=== PATIENT | female | born 1960 | race Caucasian/White ===

== ENCOUNTER → 2018-07-13 16:33 | Outpatient (CLI) | payer OTHER, SELFPAY ==
[2018-07-13 18:30] LABS: Cholesterol 208 mg/dL (140-199); Glucose 86 mg/dL (70-100); HDL Cholesterol 38 mg/dL (40-60); LDL Cholesterol Calculated 130 mg/dL (<100); Triglycerides 202 mg/dL (35-150)
== END ==
PROVIDERS: PCP Student in an Organized Health Care Education/Training Program; Visit Provider Student in an Organized Health Care Education/Training Program
DX: Z00.00 Encounter for general adult medical examination without abnormal findings (principal)
CPT/HCPCS: 36415; 80061; 82947

== ENCOUNTER → 2019-04-17 15:14 | Outpatient (CLI) | payer OTHER, SELFPAY ==
--- NOTE | 2019-04-17 | DI.RAD.S_ITS ---
PROCEDURE: XR KNEE LT 3V INDICATIONS: Pain in LT knee TECHNIQUE: 3 views of the knee were acquired. COMPARISON: None. FINDINGS: Bones: No fractures or dislocations. No suspicious bony lesions. Soft tissues: No joint effusion. No suspicious soft tissue calcifications. IMPRESSION: Normal for age, source of current knee pain symptoms is not seen. Dictated by: Jermaine David M.D. on 04/17/2019 at 16:06 Approved by: Jermaine David M.D. on 04/17/2019 at 16:06
== END ==
PROVIDERS: PCP Student in an Organized Health Care Education/Training Program; Visit Provider Student in an Organized Health Care Education/Training Program
DX: M25.562 Pain in left knee (principal)
CPT/HCPCS: 73562

== ENCOUNTER → 2019-04-20 11:59 | Outpatient (CLI) | payer OTHER, SELFPAY ==
--- NOTE | 2019-04-20 12:01 | DI.US.S_ITS ---
PROCEDURE: US EXTREMITY NONVASC LOWER LT INDICATIONS: KNEE PAIN, EVALUATE FOR BAKERS CYST TECHNIQUE: Real-time scanning was performed of the left knee, with image documentation. COMPARISON: None. FINDINGS: No Rivera's cyst identified. Small suprapatellar knee joint effusion. IMPRESSION: Small suprapatellar knee joint effusion. Dictated by: Zeb DIALLO Interpreted: Jermaine David MD on 04/20/2019 at 13:21 Approved by: Jermaine David M.D. on 04/20/2019 at 14:41
== END ==
PROVIDERS: PCP Student in an Organized Health Care Education/Training Program; Visit Provider Student in an Organized Health Care Education/Training Program
DX: M25.562 Pain in left knee (principal); M25.462 Effusion, left knee
CPT/HCPCS: 76882

== ENCOUNTER → 2019-05-07 18:19 | Outpatient (CLI) | payer OTHER, SELFPAY ==
--- NOTE | 2019-05-07 18:20 | DI.MRI.S_ITS ---
PROCEDURE: MR KNEE LT WO CON INDICATIONS: Left knee pain TECHNIQUE: Noncontrast sagittal PD fast spin echo and T2 fast spin echo with fat saturation, sagittal 3-D FLASH with fat saturation; coronal T1 spin echo and PD fast spin echo with fat saturation, and axial PD fast spin echo with fat saturation through the knee. COMPARISON: None. FINDINGS: Image quality: Excellent. Menisci: The medial meniscus demonstrates normal morphology and internal signal. Complex oblique tear involving anterior horn of lateral meniscus is seen extending to superior articulating surface. Adjacent 1.3 x 1.2 x 1.1 cm cisco- meniscal cyst is seen anterior to anterior horn of lateral meniscus. The meniscal root ligaments appear intact. Cruciate ligaments: The anterior and posterior cruciate ligaments appear intact. Medial structures: The medial collateral ligament appears intact. The posterior oblique ligament, semimembranosus tendon insertions, oblique popliteal ligament, and meniscocapsular junction appear intact. Visualized portions of the pes anserinus tendons appear normal. No abnormal bursal fluid. Lateral structures: The lateral collateral ligament, long and short heads of the biceps femoris tendon appear intact. The popliteus tendon appears normal; the popliteofibular ligament appears intact. The posterosuperior and anteroinferior popliteomeniscal fascicles appear intact. The arcuate and fabellofibular ligaments appear intact, on either side of the lateral inferior geniculate artery. Iliotibial band appears normal. Anterior structures: The quadriceps and patellar tendons appear intact. Patellar alignment is normal. No femoral trochlear dysplasia or ventral trochlear prominence. No edema in the infrapatellar fat pad. Bones and cartilage: No bone marrow contusions or fractures. 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 Low-grade chondromalacia involving lateral facet of patella cartilage and apex is also seen. Joint space: There is small amount of joint fluid. No Rivera's cyst. Normal appearing synovial plicae are incidentally noted. IMPRESSION: 1. Complex tear involving anterior horn of lateral meniscus extending to superior articulating surface with adjacent 1.3 x 1.2 x 1.1 cm cisco- meniscal cyst. No focal medial meniscal tear. 2. Cruciate ligaments are intact. 3. Chondromalacia involving lateral femoral tibial compartment with tiny 3 mm osteochondral lesion in lateral tibial plateau as above. Low-grade chondromalacia patella as above. Small joint effusion. Dictated by: Marty Salcedo M.D. on 05/08/2019 at 9:53 Approved by: Marty Salcedo M.D. on 05/08/2019 at 9:59
== END ==
PROVIDERS: PCP Student in an Organized Health Care Education/Training Program; Visit Provider Student in an Organized Health Care Education/Training Program
DX: S83.282A Other tear of lateral meniscus, current injury, left knee, initial encounter (principal); M94.262 Chondromalacia, left knee
CPT/HCPCS: 73721

== ENCOUNTER → 2019-07-18 15:04 | Outpatient (CLI) | payer OTHER, SELFPAY ==
[2019-07-18 16:18] LABS: Cholesterol 218 mg/dL (140-199); Glucose 95 mg/dL (80-110); HDL Cholesterol 38 mg/dL (40-60); LDL Cholesterol Calculated 145 mg/dL (<100); Triglycerides 173 mg/dL (35-150); Uric Acid 5.3 mg/dL (2.5-6.2)
== END ==
PROVIDERS: PCP Student in an Organized Health Care Education/Training Program; Visit Provider Student in an Organized Health Care Education/Training Program
DX: Z02.89 Encounter for other administrative examinations (principal); M10.9 Gout, unspecified; E66.9 Obesity, unspecified
CPT/HCPCS: 36415; 80061; 82947; 84550

== ENCOUNTER → 2019-10-16 18:38 | Outpatient (CLI) | payer OTHER, SELFPAY ==
--- NOTE | 2019-10-16 | DI.MG.S_ITS ---
BILATERAL DIGITAL SCREENING MAMMOGRAM 3D/2D WITH CAD: 10/16/2019 CLINICAL: Routine screening. Comparison is made to exams dated: 12/28/2017 mammogram, 04/09/2013 mammogram, and 03/03/2012 mammogram - [facility]. There are scattered fibroglandular elements in both breasts. Current study was also evaluated with a Computer Aided Detection (CAD) system. No significant masses, calcifications, or other findings are seen in either breast. There has been no significant interval change. IMPRESSION: NEGATIVE There is no mammographic evidence of malignancy. A 1 year screening mammogram is recommended. This exam was interpreted at Station ID: [id number]. NOTE: For mammograms, a report in lay terms will be sent to the patient. Approximately 15% of breast malignancies will not be visualized mammographically. In the management of a palpable breast mass, a negative mammogram must not discourage biopsy of a clinically suspicious lesion. Electronically Signed By: Rod becker/hernando:10/17/2019 08:36:24 letter sent: Normal Exam ACR BI-RADS Category 1: Negative 3341F
== END ==
PROVIDERS: PCP Student in an Organized Health Care Education/Training Program; Referring Provider Student in an Organized Health Care Education/Training Program; Visit Provider Student in an Organized Health Care Education/Training Program
DX: Z12.31 Encounter for screening mammogram for malignant neoplasm of breast (principal)
CPT/HCPCS: 77063; 77067

== ENCOUNTER → 2020-07-22 16:33 | Outpatient (CLI) | payer OTHER, SELFPAY ==
[2020-07-22 17:58] LABS: Alanine Aminotransferase 18 IU/L (<35); Albumin 4.2 g/dL (3.5-5.0); Albumin Globulin Ratio 1.3 (1.0-2.8); Alkaline Phosphatase 70 U/L (38-126); Aspartate Aminotransferase 22 IU/L (14-36); Bilirubin Total 0.6 mg/dL (0.2-1.3); Bilirubin Unconjugated 0.4 mg/dL (0.0-1.1); Cholesterol 210 mg/dL (140-199); Globulin 3.3 g/dL (1.7-4.1); Glucose 95 mg/dL (80-110); HDL Cholesterol 37 mg/dL (40-60); HEMOLYSIS < 15 (0-50); LDL Cholesterol Calculated 140 mg/dL (<100); Total Protein 7.5 g/dL (6.3-8.2); Triglycerides 167 mg/dL (35-150)
== END ==
PROVIDERS: PCP Student in an Organized Health Care Education/Training Program; Referring Provider Student in an Organized Health Care Education/Training Program; Visit Provider Student in an Organized Health Care Education/Training Program
DX: Z13.220 Encounter for screening for lipoid disorders (principal); R94.5 Abnormal results of liver function studies; E66.9 Obesity, unspecified
CPT/HCPCS: 36415; 80061; 80076; 82947

== ENCOUNTER → 2020-11-28 15:29 | Outpatient (CLI) | payer OTHER, SELFPAY ==
[2020-11-28] MEDS: COVID-19 VACC #1, MRNA(MOD) 100 MCG/0.5 ML VIAL IM (15:36)
== END ==
PROVIDERS: PCP Student in an Organized Health Care Education/Training Program; Visit Provider Internal Medicine
DX: Z23 Encounter for immunization (principal)
CPT/HCPCS: 0011A; 91301

== ENCOUNTER → 2020-12-24 16:53 | Outpatient (CLI) | payer OTHER, SELFPAY ==
--- NOTE | 2020-12-24 16:55 | DI.MG.S_ITS ---
BILATERAL DIGITAL SCREENING MAMMOGRAM 3D/2D WITH CAD: 12/24/2020 CLINICAL: Routine screening. Comparison is made to exams dated: 10/16/2019 mammogram, 12/28/2017 mammogram, 04/09/2013 mammogram, and 03/03/2012 mammogram - [facility]. There are scattered fibroglandular elements in both breasts. Current study was also evaluated with a Computer Aided Detection (CAD) system. No significant masses, calcifications, or other findings are seen in either breast. There has been no significant interval change. IMPRESSION: NEGATIVE There is no mammographic evidence of malignancy. A 1 year screening mammogram is recommended. This exam was interpreted at Station ID: [id number]. NOTE: For mammograms, a report in lay terms will be sent to the patient. Approximately 15% of breast malignancies will not be visualized mammographically. In the management of a palpable breast mass, a negative mammogram must not discourage biopsy of a clinically suspicious lesion. Electronically Signed By: Armen rodriguez/hernando:12/25/2020 07:58:47 letter sent: Normal Exam ACR BI-RADS Category 1: Negative [id number]
== END ==
PROVIDERS: PCP Student in an Organized Health Care Education/Training Program; Referring Provider Student in an Organized Health Care Education/Training Program; Visit Provider Student in an Organized Health Care Education/Training Program
DX: Z12.31 Encounter for screening mammogram for malignant neoplasm of breast (principal)
CPT/HCPCS: 77063; 77067

== ENCOUNTER → 2020-12-26 14:57 | Outpatient (CLI) | payer OTHER, SELFPAY ==
[2020-12-26] MEDS: COVID-19 VACC #2, MRNA(MOD) 100 MCG/0.5 ML VIAL IM (15:05)
== END ==
PROVIDERS: PCP Student in an Organized Health Care Education/Training Program; Visit Provider Internal Medicine
DX: Z23 Encounter for immunization (principal)
CPT/HCPCS: 0012A; 91301

== ENCOUNTER → 2020-12-31 15:25 | Outpatient (CLI) | payer OTHER, SELFPAY ==
--- NOTE | 2020-12-31 15:26 | DI.RAD.S_ITS ---
PROCEDURE: XR LUMBAR SPINE 2-3V INDICATIONS: Low back pain following injury. Associated leg sx. TECHNIQUE: 3 views of the lumbar spine were acquired. COMPARISON: None. FINDINGS: Bones: 5 [id number] vertebrae are present. There is normal bony alignment. No vertebral body compression fractures. No suspicious bony lesions. There is mild degenerative disc height reduction and endplate osteophyte formation along the thoracolumbar spine visualized, and facet osteoarthritis is mild at L3-4 and L4-5 and [id number] at L5-S1. Soft tissues: Overlying bowel gas pattern is normal. No suspicious soft tissue calcifications. IMPRESSION: Mild degenerative changes along the LS spine except [id number] at L5-S1 as discussed above. No fracture or subluxation is seen. If nerve root impingement is present it would be most likely centered on L5-S1. Dictated by: Jermaine David M.D. on 12/31/2020 at 16:02 Approved by: Jermaine David M.D. on 12/31/2020 at 16:03
== END ==
PROVIDERS: PCP Student in an Organized Health Care Education/Training Program; Referring Provider Student in an Organized Health Care Education/Training Program; Visit Provider Student in an Organized Health Care Education/Training Program
DX: M54.5 Low back pain (principal); S39.92XA Unspecified injury of lower back, initial encounter; M47.816 Spondylosis without myelopathy or radiculopathy, lumbar region; M47.817 Spondylosis without myelopathy or radiculopathy, lumbosacral region; X58.XXXA Exposure to other specified factors, initial encounter
CPT/HCPCS: 72100

== ENCOUNTER → 2021-01-08 18:50 | Outpatient (CLI) | payer OTHER, SELFPAY ==
--- NOTE | 2021-01-08 18:54 | DI.MRI.S_ITS ---
PROCEDURE: MR LUMBAR SPINE WO CON INDICATIONS: Lumbar spine injury, new urinary incontinence TECHNIQUE: Noncontrast sagittal T1 spin echo and T2 fast echo, sagittal STIR, axial T1 and T2 fast spin echo through the lumbar spine. In cases with scoliosis, additional coronal T2 fast spin echo may be performed. COMPARISON: [facility], MR, MR LUMBAR SPINE WITHOUT CONTRAST, 07/11/2019, 11:16. FINDINGS: Image quality: Excellent. Alignment and Curvature: There is normal bony alignment. Bone Marrow: Minimal subacute left-sided superior endplate compression of L5. Marrow is of otherwise normal overall signal. No other compression fractures noted. Spinal Cord: Conus medullaris terminates at the L1 level. Visualized cord demonstrates normal signal and size. Paraspinous Soft Tissues: No paravertebral masses. T12-L1: Minimal disc bulge. No canal stenosis or foraminal stenosis. L1-L2: Mild disc bulge. No canal stenosis or foraminal stenosis. L2-L3: Mild disc bulge. Mild facet hypertrophy. Mild canal stenosis. Mild bilateral foraminal stenosis. L3-L4: Unchanged findings. Posterior disc bulge and facet and ligament hypertrophy. Unchanged moderate canal stenosis. Unchanged right foraminal annulus tear plus disc bulge with severe right foraminal narrowing and impingement on the exiting right L3 nerve root. Mild to moderate left foraminal narrowing. L4-L5: Diffuse disc bulge with superimposed left paracentral disc extrusion. There is underlying mild to moderate canal stenosis. The extruded disc material extends from the level of the inferior endplate of L4 to the mid body of L5. It does not exert mass effect on the exiting left L4 nerve root. It obliterates the left L5 nerve root in the left lateral recess. It measures 2.3 x 1.1 x 0.8 cm. A left foraminal annulus tear has developed. There is mild to moderate left foraminal narrowing with flattening deformity on the exiting left L4 nerve root. L5-S1: Posterior annulus tear. Mild disc bulge. Facet and ligament hypertrophy. No canal stenosis or foraminal stenosis. IMPRESSION: 1. At L4-L5, there is now a left paracentral disc extrusion measuring 2.3 x 1.1 x 0.8 cm, which obliterates the left L5 nerve root in the left lateral recess. There is also left foraminal annulus tear in disc bulge, with flattening deformity on the exiting left L4 nerve root. 2. There is mild canal stenosis at L2-L3 and moderate canal stenosis at L3-L4. 3. There is severe right foraminal narrowing at L3-L4. 4. Minimal subacute left aspect superior endplate compression of L5. Dictated by: Sagar Arellano M.D. on 01/09/2021 at 7:50 Approved by: Sagar Arellano M.D. on 01/09/2021 at 8:03
== END ==
PROVIDERS: PCP Student in an Organized Health Care Education/Training Program; Referring Provider Student in an Organized Health Care Education/Training Program; Visit Provider Student in an Organized Health Care Education/Training Program
DX: M48.061 Spinal stenosis, lumbar region without neurogenic claudication (principal); G89.29 Other chronic pain; S39.92XA Unspecified injury of lower back, initial encounter
CPT/HCPCS: 72148

== ENCOUNTER → 2021-01-27 16:56 | Outpatient (CLI) | payer OTHER, SELFPAY ==
[2021-01-27 17:50] LABS: Add Manual Diff / Slide Review NO; Basophils Absolute Auto 100 /uL (0-100); Basophils Percent Auto 0.8 % (0-2); Eosinophils Absolute Auto 300 /uL (0-450); Eosinophils Percent Auto 2.5 % (2-4); Hematocrit 41.1 % (36-46); Hemoglobin 13.9 g/dL (12.0-16.0); Lymphocytes Absolute Auto 3800 /uL (1100-4500); Lymphocytes Percent Auto 36.8 % (25-40); Mean Corpuscular HGB Conc 33.8 % (30-36); Mean Corpuscular Volume 88.8 fL (80-100); Monocytes Absolute Auto 800 /uL (0-900); Monocytes Percent Auto 7.9 % (3-14); Neutrophils Absolute Auto 5400 /uL (1500-7000); Platelet Count 331 X10^3/uL (150-400); Red Blood Cell Count 4.62 X10^6/uL (4.0-5.2); Red Cell Distribution Width 14.1 % (11.6-14.8); White Blood Cell Count 10.4 X10^3/uL (4.5-11.0)
== END ==
PROVIDERS: PCP Student in an Organized Health Care Education/Training Program; Referring Provider Orthopaedic Surgery Orthopaedic Surgery of the Spine; Visit Provider Orthopaedic Surgery Orthopaedic Surgery of the Spine
DX: Z01.818 Encounter for other preprocedural examination (principal)
CPT/HCPCS: 36415; 85025; 93005; 93010

== ENCOUNTER → 2021-01-28 14:00 | Outpatient (CLI) | payer OTHER, SELFPAY ==
[2021-01-28 14:46] LABS: COVID19 -Nasal RAPID Negative (Negative)
== END ==
PROVIDERS: PCP Student in an Organized Health Care Education/Training Program; Visit Provider Physician Assistant
DX: Z20.822 Contact with and (suspected) exposure to COVID-19 (principal)
CPT/HCPCS: 87635

== ENCOUNTER 2021-01-30 11:08 | Day surgery (SDC) | payer OTHER, SELFPAY ==
[2021-01-28 14:48] VITALS: BMI 36.6
[2021-01-30] VITALS (12 sets, daily range): BP systolic 114–154; BP diastolic 49–79; PULSE 78–92; RESP 6–18; TEMP 36.2–38.1; O2SAT 87–99; BMI 36.6
[2021-01-30] MEDS: LACTATED RINGERS 1,000 ML 42 ML IV ×2 (12:30→14:19)
--- NOTE | 2021-01-30 13:08 | PM.PREOP ---
Pre-operative Note COVID-19 COVID-19 status: Negative Result date/Date tested (Pos, Neg/Pending): 01/28/21 Interval Note History & Physical reviewed/Exam performed by Physician: Yes Changes to H&P: No
--- NOTE | 2021-01-30 14:02 | SUR.OPER ---
Prone on spine table, head in foam head support, padded chest and pelvic supports, gel pad at knees, lower legs supported by pillows; nipples, genitalia and toes free of pressure, arms secured on foam padded arm boards at <90 degrees abduction. Tape over blanket at thigh secured to table.
[2021-01-30] MEDS: BUPIVACAINE 0.5% W/ EPI (PF) 30 ML VIAL INJ (14:17)
[2021-01-30] MEDS: methylPREDNISolone acet DEPO 40 MG/ML VIAL IM (14:18)
--- NOTE | 2021-01-30 14:25 | DI.RAD.S_ITS ---
PROCEDURE: XR LUMBAR SPINE 2-3V INDICATIONS: L4-5 MICRODISCECTOMY TECHNIQUE: 2 views of the lumbar spine were acquired. COMPARISON: [facility], , XR LUMBAR SPINE 2-3V, 12/31/2020, 15:30. FINDINGS: Spot fluoroscopic views demonstrating placement of surgical instruments in the posterior paraspinal soft tissues with the tip seen at the level of L4-L5. Dictated by: Cale Lara M.D. on 01/30/2021 at 16:38 Approved by: Cale Lara M.D. on 01/30/2021 at 16:39
--- NOTE | 2021-01-30 15:25 | P.OP_ITS ---
Operative Date/Time/Diagnoses Date of procedure: 01/30/21 Time of procedure: 14:25 Pre-op diagnosis: 1. L4-5 disc herniation 2. L4-5 radiculopathy Post-op diagnosis: same Procedure & Clinicians Procedure: 1. L4-5 left microdiscectomy 2. Utilization of microsurgical technique and operating microscope Same procedure as scheduled: Yes Indications: Patient has been having acute onset back pain and worsening lumbar radiculopathy. Patient failed multiple conservative management with worsening pain weakness and numbness in her lower extremity. Patient has been having difficulty performing activity of daily living. After discussing risks benefits of treatment options, patient elected proceed with surgery. Surgeon: Washington Zuleta Social Services: Charlie Caceres Click Yes if Unassisted: No Anesthesia Type: General Operative Notes Closure Type: primary Specimen(s): none sent Estimated Blood Loss (mL): 10 Blood products transfused: none Procedure in detail: Patient was seen in the preoperative area. Risks and benefits of the surgery was discussed with the patient. Informed consent was obtained from the patient and placed in the chart. Surgical site was marked. Patient was taken to the operative room. General anesthesia was administered. Prophylactic antibiotic was given to the patient less than 30 min before the incision was made. Patient was placed into a prone position on the [place] table. Patient's back was then prepped and draped in the sterile fashion. Time- out was performed at this time. Using AP and lateral C-arm imaging the interval between L4-5 was identified and marked on patient's back. A 1 inch incision 1 in from midline was made on the left side. The fascia was incised in line with skin incision. Globus MARS retractors was placed inside the incision and docked onto the L4 lamina. Using microsurgical technique and operating microscope, a L4 laminotomy was performed using a Kerrison rongeur. Liagamentum flavum was resected at the site of the laminotomy. The disc space at L4-5 was identified. Microdiscectomy was performed by incising the annulus with #11 blade. Microcurettes and pituitary was used to removed herniated disc fragments of disc from the epidural space. Patient was found to have one large disc fragments migrated caudally which was causing significant impingement on the left L5 nerve root. The disc fragment was removed using a pituitary in epidural space. After the microdiskectomy was completed, the area medial lateral superior and inferior to the area of the microdiskectomy was inspected and explored using a micro curette. No other impinging structure was identified. The wound was then irrigated with sterile normal saline. 40 mg Depo-Medrol was placed into the epidural space. The deep fascia was closed with 1-0 Vicryl. The subcutaneous tissue was closed with 2-0 Vicryl. The skin was closed with skin mauro. Patient tolerated the procedure well. There were no complications. Patient was transferred recovery room in stable condition. Complications: none Post-operative Condition: stable Disposition: PACU Plan for aftercare: Discharge to home
[2021-01-30] MEDS: HYDROCODONE/ACET 5/325 TABLET 2 TAB PO ×2 (15:37→16:06)
[2021-01-30] MEDS: HYDROMORPHONE 2 MG INJ IV ×2 (15:43→15:49)
== END 2021-01-30 16:25 | disposition home or self-care (01) ==
PROVIDERS: PCP Student in an Organized Health Care Education/Training Program; Referring Provider Orthopaedic Surgery Orthopaedic Surgery of the Spine; Visit Provider Orthopaedic Surgery Orthopaedic Surgery of the Spine
PROC: (CPT 63030; principal; 2021-01-30 13:15)
DX: M51.16 Intervertebral disc disorders with radiculopathy, lumbar region (principal)
CPT/HCPCS: 63030; 72100; 76000; J1030; J1100; J1170; J2250; J2405; J2704; J3010

== ENCOUNTER → 2021-07-30 16:36 | Outpatient (CLI) | payer OTHER, SELFPAY ==
[2021-07-30 17:36] LABS: Add Manual Diff / Slide Review NO; Basophils Absolute Auto 100 /uL (0-100); Basophils Percent Auto 0.8 % (0-2); Eosinophils Absolute Auto 200 /uL (0-450); Eosinophils Percent Auto 2.1 % (2-4); Hematocrit 39.9 % (36-46); Hemoglobin 13.3 g/dL (12.0-16.0); Lymphocytes Absolute Auto 3500 /uL (1100-4500); Lymphocytes Percent Auto 37.9 % (25-40); Mean Corpuscular HGB Conc 33.4 % (30-36); Mean Corpuscular Hemoglobin 29.6 PG (26-34); Mean Corpuscular Volume 88.6 fL (80-100); Monocytes Absolute Auto 500 /uL (0-900); Monocytes Percent Auto 5.2 % (3-14); Neutrophils Absolute Auto 5000 /uL (1500-7000); Platelet Count 313 X10^3/uL (150-400); Red Blood Cell Count 4.51 X10^6/uL (4.0-5.2); Red Cell Distribution Width 14.5 % (11.6-14.8); White Blood Cell Count 9.2 X10^3/uL (4.5-11.0)
[2021-07-30 17:39] LABS: Appearance Urine UA CLEAR; Bilirubin Urine UA NEGATIVE (NEGATIVE); Color Urine UA YELLOW; Glucose Urine UA NEGATIVE (Negative); Ketones Urine UA NEGATIVE (NEGATIVE); Leukocyte Esterase Urine UA NEGATIVE (NEGATIVE); Nitrite Urine UA NEGATIVE (Negative); Occult Blood Urine UA TRACE-INTACT (Negative); Protein Urine UA TRACE (Negative); Specific Gravity Urine UA >=1.030 (1.000-1.035); Urobilinogen Urine UA 0.2 E.U./dL (0.2)
[2021-07-30 18:00] LABS: Bacteria Urine Occasional (0-1); Culture Indicated Urine Cult Not Indicated; Mucus Urine 3+ (Negative); RBC Urine 0-1/HPF (0-5/HPF); Squamous Epithelial Cell Urine 5-10 /HPF (0-5/HPF); WBC Urine 0-1/HPF (0-5/HPF)
[2021-07-30 18:14] LABS: Alanine Aminotransferase 13 IU/L (<35); Albumin 4.2 g/dL (3.5-5.0); Albumin Globulin Ratio 1.5 (1.0-2.8); Alkaline Phosphatase 70 U/L (38-126); Aspartate Aminotransferase 18 IU/L (14-36); BUN Creatinine Ratio 13.8 (6-22); Bilirubin Total 0.5 mg/dL (0.2-1.3); Blood Urea Nitrogen 11 mg/dL (7-17); C-Reactive Protein Quant 0.5 mg/dL (<1.0); Calcium 9.7 mg/dL (8.4-10.2); Carbon Dioxide 29 mmol/L (22-32); Chloride 105 mmol/L (98-107); Cholesterol 215 mg/dL (140-199); Estimated Glomerular Filt Rate > 60.0 mL/min (>60); Globulin 2.8 g/dL (1.7-4.1); Glucose 91 mg/dL (80-110); HDL Cholesterol 37 mg/dL (40-60); HEMOLYSIS < 15 (0-50); LDL Cholesterol Calculated 143 mg/dL (<100); Lipase 66 U/L (23-300); Potassium 4.3 mmol/L (3.4-5.1); Sodium 140 mmol/L (137-145); Triglycerides 174 mg/dL (35-150)
[2021-07-30 20:28] LABS: Erythrocyte Sedimentation Rate 23 MM/HR (0-20)
== END ==
PROVIDERS: PCP Student in an Organized Health Care Education/Training Program; Referring Provider Student in an Organized Health Care Education/Training Program; Visit Provider Student in an Organized Health Care Education/Training Program
DX: R10.9 Unspecified abdominal pain (principal); Z13.220 Encounter for screening for lipoid disorders
CPT/HCPCS: 36415; 80053; 80061; 81001; 83690; 85025; 85651; 86140

== ENCOUNTER → 2022-08-10 11:56 | Outpatient (CLI) | payer OTHER, SELFPAY ==
[2022-08-10 12:33] LABS: Add Manual Diff / Slide Review NO; Basophils Absolute Auto 100 /uL (0-100); Basophils Percent Auto 0.9 % (0-2); Eosinophils Absolute Auto 300 /uL (0-450); Eosinophils Percent Auto 2.7 % (2-4); Hematocrit 41.8 % (36-46); Hemoglobin 13.9 g/dL (12.0-16.0); Lymphocytes Absolute Auto 4000 /uL (1100-4500); Lymphocytes Percent Auto 35.3 % (25-40); Mean Corpuscular HGB Conc 33.2 % (30-36); Mean Corpuscular Hemoglobin 29.6 PG (26-34); Mean Corpuscular Volume 89.3 fL (80-100); Monocytes Absolute Auto 700 /uL (0-900); Monocytes Percent Auto 6.2 % (3-14); Neutrophils Absolute Auto 6200 /uL (1500-7000); Neutrophils Percent Auto 54.9 % (50-75); Platelet Count 334 X10^3/uL (150-400); Red Blood Cell Count 4.68 X10^6/uL (4.0-5.2); Red Cell Distribution Width 14.5 % (11.6-14.8); White Blood Cell Count 11.2 X10^3/uL (4.5-11.0)
[2022-08-10 13:02] LABS: BUN Creatinine Ratio 17.6 (6-22); Blood Urea Nitrogen 13 mg/dL (7-17); Calcium 9.4 mg/dL (8.4-10.2); Carbon Dioxide 26 mmol/L (22-32); Chloride 104 mmol/L (98-107); Estimated Glomerular Filt Rate > 60 mL/min (>60); Glucose 95 mg/dL (80-110); HEMOLYSIS < 15 (0-50); Potassium 4.3 mmol/L (3.4-5.1); Sodium 141 mmol/L (137-145)
== END ==
PROVIDERS: PCP Student in an Organized Health Care Education/Training Program; Referring Provider Student in an Organized Health Care Education/Training Program; Visit Provider Student in an Organized Health Care Education/Training Program
DX: Z71.1 Person with feared health complaint in whom no diagnosis is made (principal); Z02.89 Encounter for other administrative examinations
CPT/HCPCS: 36415; 80048; 85025

== ENCOUNTER → 2022-08-17 09:51 | Outpatient (CLI) | payer OTHER, SELFPAY ==
[2022-08-17 11:39] LABS: Cholesterol 224 mg/dL (140-199); HDL Cholesterol 41 mg/dL (40-60); LDL Cholesterol Calculated 143 mg/dL (<100); Triglycerides 202 mg/dL (35-150)
== END ==
PROVIDERS: PCP Student in an Organized Health Care Education/Training Program; Referring Provider Student in an Organized Health Care Education/Training Program; Visit Provider Student in an Organized Health Care Education/Training Program
DX: Z02.1 Encounter for pre-employment examination (principal)
CPT/HCPCS: 36415; 80061

== ENCOUNTER 2022-10-17 04:57 | Emergency (ER) | payer OTHER, SELFPAY ==
[2022-10-17] VITALS (9 sets, daily range): BP systolic 126–180; BP diastolic 60–78; PULSE 69–81; RESP 14–16; TEMP 36.4; O2SAT 97–98
--- NOTE | 2022-10-17 05:36 | DI.CT.S_ITS ---
PROCEDURE: CT ABDOMEN PELVIS W CON INDICATIONS: RLQ pain TECHNIQUE: After the administration of intravenous contrast, axial sections acquired from the lung bases to the pubic symphysis. Coronal and sagittal reformats were performed. For radiation dose reduction, the following was used: automated exposure control, adjustment of mA and/or kV according to patient size. COMPARISON: [facility], CT, ABDOMEN/PELVIS WITH CONTRAST, 03/06/2012, 13:25. FINDINGS: Lower thorax: The lung bases are clear. Heart size normal. No hiatal hernia. Liver: Hypodensity in the periphery of the right hepatic lobe with suggestion of peripheral puddling, probably reflecting hemangioma Biliary system: Cholecystectomy. No intra or extrahepatic bile duct dilation. Pancreas: Unremarkable without mass or inflammation evident. Spleen: Normal in size and density. Adrenals: Normal morphology and density. Reproductive system: Unremarkable as visualized. Urinary system: Bladder wall thickening with mild pericystic inflammatory change noted. Both kidneys enhance appropriately. Cystic lesion noted involving the right kidney remains stable from the prior. There is mild right hydronephrosis and urothelial wall enhancement which could reflect urethritis. No evidence of abscess. Left kidney unremarkable. Gastrointestinal system: Prior mid colonic suture noted. No abscess or obstruction. Appendix: Appendectomy Peritoneal spaces: No mesenteric or retroperitoneal adenopathy. No free air. No free fluid. Vasculature: The IVC, aorta and iliac vasculature are unremarkable. Abdominal wall: Abdominal wall intact without evidence of ventral or inguinal hernias. Musculoskeletal: Normal bone mineralization. No acute fractures. IMPRESSION: 1. Probable cystitis and possible associated right renal urethritis. No abscess. 2. Stable right hepatic hypodensity, consistent with hemangioma. Note: Final report is concordant with preliminary interpretation by [employer] Approved by: Vlad Rosario M.D. on 10/17/2022 at 8:22
[2022-10-17 05:37] LABS: Bacteria Urine Many (>30); Culture Indicated Urine Specimen Cultured; Mucus Urine 1+ (Negative); RBC Urine 30-100/HPF (0-5/HPF); Squamous Epithelial Cell Urine 0-1 /HPF (0-5/HPF); Transitional Epi Cells Urine 1-5/HPF (0-5/HPF); WBC Urine >100/HPF (0-5/HPF)
--- NOTE | 2022-10-17 05:38 | ED.GENADULT ---
HPI - General Adult General Chief complaint: Abdominal Pain Stated complaint: rt side abd pain Time Seen by Provider: 10/17/22 05:07 Source: patient Mode of arrival: Ambulatory History of Present Illness HPI narrative: 62-year-old woman no significant chronic medical history or medications presents with 24 hours of increasing right lower quadrant and right flank pain. She notes the last time she had symptoms as severe as this she ended up having diverticulitis with emergent surgery and partial colectomy and colostomy. She comes in complaining of dysuria with urinary frequency almost every 2 hours with smaller volumes of urine as the evening has gone by. No overt hematuria. She does not describe cough feels that she has been hot but has not measured her fever. No headache abdominal pain is localized to the right lower quadrant and right flank. She describes mild nausea, decreased appetite no headaches. Related Data Home Medications Medication Instructions Recorded Confirmed diphenhydramine HCl 25 mg capsule 25 mg PO BEDTIME 01/08/21 08/10/22 (Benadryl) Previous Rx's Medication Instructions Recorded cephalexin 500 mg capsule 500 mg PO TID 10 days #30 caps 10/17/22 Allergies Allergy/AdvReac Type Severity Reaction Status Date / Time aspirin AdvReac Intermediate Stomach Verified 08/10/22 11:30 pain Penicillins AdvReac Mild Unknown Verified 08/10/22 11:30 TAPE AdvReac Mild WHITE Uncoded 08/10/22 11:30 TAPE: RASH Review of Systems Review of Systems Narrative: Remainder of complete review of systems is otherwise unremarkable except for that included in the HPI. 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 Primary insomnia (07/06/16) Rheumatoid arthritis (2008) RLS (restless legs syndrome) (1960) Spinal stenosis, lumbar region with neurogenic claudication Surgical History Anesthesia History of arthroscopic knee surgery (~2008) History of cholecystectomy (03/24/12) History of colonoscopy (05/01/13) History of hemicolectomy (07/06/16) History of hysterectomy (2003) History of knee replacement (2012) History of partial colectomy (2007) History of tonsillectomy (1974) History of tubal ligation (1994) Status post right breast lumpectomy (1977) Status post right knee replacement Family History Son Age: 33 Mental health problem Daughter Age: 32 Obesity, unspecified obesity severity, unspecified obesity type Father Type 2 diabetes mellitus without complication, unspecified continuous churn buttermaker insulin use status Mother Cancer Erysipelas Sister Age: 72 Type 2 diabetes mellitus without complication, unspecified fci insulin use status Brother Multiple myeloma Social History household members: family and none Smoking Status: Never smoker alcohol intake: never substance use type: does not use Smoking Status: Never smoker Substance Use Type: does not use Exam Initial Vital Signs Initial Vital Signs: Vital Signs Temperature 97.5 F L 10/17/22 05:10 Pulse Rate 80 10/17/22 05:10 Respiratory Rate 16 10/17/22 05:10 Blood Pressure 180/78 H 10/17/22 05:10 Pulse Oximetry 97 10/17/22 05:10 Oxygen Delivery Method 10/17/22 05:10 General: Appears fatigued and in a moderate amount of pain but Able to deliver complete coherent history. HEENT: Moist mucous membranes, normal sclera with reactive pupils, Respiratory: Lungs are clear to auscultation, no wheezing no rales no rhonchi. Full and symmetrical air movement Cardiac: Regular rate and rhythm no murmurs no bruits Abdomen: Soft, right lower quadrant and right flank pain without rebound or guarding. No significant suprapubic tenderness. No upper quadrant abnormalities Skin: Warm and dry, no rashes Neurologic: Grossly neurologically intact with no obvious asymmetries or abnormalities Extremities: No trauma, well perfused Psych: Cooperative, appropriate insight and affect Course Orders Ordered: ED Orders 10/17/22 05:20 Urine Culture Stat Urine Microscopic Stat 10/17/22 05:36 CT abdomen pelvis w con Stat 10/17/22 05:45 Complete Blood Count AUTO DIFF Stat Comprehensive Metabolic Panel Stat Lactate (Lactic Acid) Stat 10/17/22 06:27 Blood Culture Stat Hydromorphone HCl (Hydromorphone 0.5 Mg Inj) 0.5 mg IV Q15MIN PRN PRN Reason: Pain, Last Admin: 10/17/22 05:55 Dose: 0.5 mg Documented By: BS Discontinued Medications Sodium Chloride (Normal Saline 0.9%) 1,000 mls @ 1,000 mls/hr IV BOLUS ONE Stop: 10/17/22 06:34 Last Admin: 10/17/22 05:55 Dose: 1,000 mls/hr Documented By: BS Ondansetron HCl (Ondansetron 4 Mg/2 Ml Inj) 4 mg IV NOW ONE Stop: 10/17/22 05:36 Last Admin: 10/17/22 05:54 Dose: 4 mg Documented By: BS Vital Signs Vital signs: Vital Signs - 8 hr 10/17/22 05:10 Temperature 97.5 F L Pulse Rate 80 Respiratory Rate 16 Blood Pressure 180/78 H Pulse Oximetry 97 Oxygen Delivery Method Room Air Medical Decision Making Lab Data 10/17/22 05:45 10/17/22 05:45 Labs: Lab Results 10/17/22 10/17/22 10/17/22 Range/Units 05:20 05:45 05:45 WBC 16.4 H (4.5-11.0) X10^3/uL RBC 4.58 (4.0-5.2) X10^6/uL Hgb 13.5 (12.0-16.0) g/dL Hct 40.1 (36-46) % MCV 87.6 (80-100) fL MCH 29.5 (26-34) PG MCHC 33.7 (30-36) % RDW 14.1 (11.6-14.8) % Plt Count 277 (150-400) X10^3/uL Neut % (Auto) 76.7 H (50-75) % Lymph % (Auto) 14.8 L (25-40) % [place] % (Auto) 7.5 (3-14) % Eos % (Auto) 0.6 L (2-4) % Baso % (Auto) 0.4 (0-2) % Neut # (Auto) 05254 H (8012-3750) /uL Lymph # (Auto) 2400 (9221-7111) /uL [place] # (Auto) 1200 H (0-900) /uL Eos # (Auto) 100 (0-450) /uL Baso # (Auto) 100 (0-100) /uL Sodium 140 (137-145) mmol/L Potassium 3.8 (3.4-5.1) mmol/L Chloride 103 (98-107) mmol/L Carbon Dioxide 28 (22-32) mmol/L BUN 10 (7-17) mg/dL Creatinine 0.72 (0.52-1.04) mg/dL Estimated GFR > 60 (>60) mL/min BUN/Creatinine Ratio 13.9 (6-22) Glucose 119 H (80-110) mg/dL Lactate (0.7-2.1) mmol/L Calcium 9.3 (8.4-10.2) mg/dL Total Bilirubin 0.7 (0.2-1.3) mg/dL AST 17 (14-36) IU/L ALT 17 (<35) IU/L Alkaline Phosphatase 76 (38-126) U/L Total Protein 7.4 (6.3-8.2) g/dL Albumin 4.1 (3.5-5.0) g/dL Globulin 3.3 (1.7-4.1) g/dL Albumin/Globulin Ratio 1.2 (1.0-2.8) Urine RBC 30-100/hpf H (0-5/HPF) Urine WBC >100/hpf H (0-5/HPF) Ur Squamous Epith Cells 0-1 /hpf (0-5/HPF) Ur Transition Epith Cell 1-5/hpf (0-5/HPF) Urine Bacteria Many (>30) H (None) Urine Mucus 1+ H (Negative) Ur Culture Indicated? Specimen cultured 10/17/22 Range/Units 05:45 WBC (4.5-11.0) X10^3/uL RBC (4.0-5.2) X10^6/uL Hgb (12.0-16.0) g/dL Hct (36-46) % MCV (80-100) fL MCH (26-34) PG MCHC (30-36) % RDW (11.6-14.8) % Plt Count (150-400) X10^3/uL Neut % (Auto) (50-75) % Lymph % (Auto) (25-40) % [place] % (Auto) (3-14) % Eos % (Auto) (2-4) % Baso % (Auto) (0-2) % Neut # (Auto) (5026-2784) /uL Lymph # (Auto) (6807-5753) /uL [place] # (Auto) (0-900) /uL Eos # (Auto) (0-450) /uL Baso # (Auto) (0-100) /uL Sodium (137-145) mmol/L Potassium (3.4-5.1) mmol/L Chloride (98-107) mmol/L Carbon Dioxide (22-32) mmol/L BUN (7-17) mg/dL Creatinine (0.52-1.04) mg/dL Estimated GFR (>60) mL/min BUN/Creatinine Ratio (6-22) Glucose (80-110) mg/dL Lactate 1.3 (0.7-2.1) mmol/L Calcium (8.4-10.2) mg/dL Total Bilirubin (0.2-1.3) mg/dL AST (14-36) IU/L ALT (<35) IU/L Alkaline Phosphatase (38-126) U/L Total Protein (6.3-8.2) g/dL Albumin (3.5-5.0) g/dL Globulin (1.7-4.1) g/dL Albumin/Globulin Ratio (1.0-2.8) Urine RBC (0-5/HPF) Urine WBC (0-5/HPF) Ur Squamous Epith Cells (0-5/HPF) Ur Transition Epith Cell (0-5/HPF) Urine Bacteria (None) Urine Mucus (Negative) Ur Culture Indicated? Imaging Data CT scan - abdomen/pelvis: Radiologist's Impression: Flor[place] cystitis with possible pyelonephrosis. No evidence of renal abscess. Renal edema is appreciated on the right. No obstructing calculus is demonstrated. Post appendectomy, post hysterectomy Popeye Chiang. MDM Narrative Medical decision making narrative: CC: 24 hours of right lower quadrant pain with dysuria. This is a new problem uncertain diagnosis, potential for significant systemic symptoms Corroborating data: Data collected from: patient, Differential considered: Pyelonephritis, kidney stone, bladder infection, sepsis, doubt pelvic inflammatory disease in the absence of sexual activity since 2007. Possibility of diverticulitis patient believes that she still has her appendix in so appendicitis remains within the differential. Exam documented above, pertinent findings include: Moderate right lower quadrant and right flank pain. No evidence of acute surgical abdomen Lab Test results independently reviewed as above. Pertinent findings: CBC reveals a leukocytosis at 16.4 with moderate left shift Chemistries are reassuring with normal renal function Lactic is 1.3 Imaging studies independently reviewed: Acute cystitis with developing right pyelonephritis Treatments: Fluids, 2 g of IV ceftriaxone, pain control and nausea medication are all given. Re-evaluations: Patient is feeling better after IV fluids and Zofran. Reviewed laboratory findings with her as well as diagnosis of cystitis with developing pyelonephritis in the absence of nephrolithiasis. She is given 2 g of ceftriaxone and will be discharged home with a prescription for Keflex. She states the penicillins just ?never work?. She also finds that ibuprofen has never been effective for her but Tylenol is. She will be safe for discharge home we will need to complete the course of antibiotics, questions are answered. Disposition: see below, along with detailed discharge instructions that have been reviewed with patient as well as indications for ED re-evaluation and additional outpatient follow up Discharge Plan Departure Patient Disposition: Home Clinical Impression: Cystitis, Pyelonephritis Instructions: DI for Kidney Infection Activity Restrictions/Additional Instructions: Thank you for coming in today Your blood work suggests that you do have an infection but you are not septic. It looks like you have significant bladder infection that is starting to spread to your kidney. In the emergency department you are given fluids, nausea medicine, pain medication and started on antibiotics. You received 2 g of IV ceftriaxone. Your urine will be cultured and I have given you a prescription for Keflex for 10 days. If the culture suggest that we need to change antibiotics we will give you a call. The antibiotics have been electronically transmitted to [facility] in [place]. You can use Tylenol for pain control. I appreciate that ibuprofen does not work for you. You might try Aleve and see if you have any different luck with that. If you find that you are getting worse or develop any new symptoms, please feel free to return to the emergency department for further evaluation. Prescriptions: New cephalexin 500 mg capsule 500 mg PO TID 10 Days Qty: 30 0RF No Action diphenhydramine HCl [Benadryl] 25 mg capsule 25 mg PO BEDTIME Referrals: Vinicius Lane MD [Primary Care Provider] - Stand Alone Forms: Patient Portal/API
[2022-10-17 05:52] LABS: Add Manual Diff / Slide Review NO; Basophils Absolute Auto 100 /uL (0-100); Basophils Percent Auto 0.4 % (0-2); Eosinophils Absolute Auto 100 /uL (0-450); Eosinophils Percent Auto 0.6 % (2-4); Hematocrit 40.1 % (36-46); Hemoglobin 13.5 g/dL (12.0-16.0); Lymphocytes Absolute Auto 2400 /uL (1100-4500); Lymphocytes Percent Auto 14.8 % (25-40); Mean Corpuscular HGB Conc 33.7 % (30-36); Mean Corpuscular Hemoglobin 29.5 PG (26-34); Mean Corpuscular Volume 87.6 fL (80-100); Monocytes Absolute Auto 1200 /uL (0-900); Monocytes Percent Auto 7.5 % (3-14); Neutrophils Absolute Auto 12600 /uL (1500-7000); Neutrophils Percent Auto 76.7 % (50-75); Platelet Count 277 X10^3/uL (150-400); Red Blood Cell Count 4.58 X10^6/uL (4.0-5.2); Red Cell Distribution Width 14.1 % (11.6-14.8); White Blood Cell Count 16.4 X10^3/uL (4.5-11.0)
[2022-10-17] MEDS: ONDANSETRON 4 MG/2 ML INJ IV (05:54)
[2022-10-17] MEDS: SODIUM CHLORIDE 0.9% 1,000 ML 1000 ML IV (05:55)
[2022-10-17] MEDS: HYDROMORPHONE 0.5 MG INJ IV (05:55)
[2022-10-17 06:03] LABS: Lactate (Lactic Acid) 1.3 mmol/L (0.7-2.1)
[2022-10-17 06:04] LABS: Alanine Aminotransferase 17 IU/L (<35); Albumin 4.1 g/dL (3.5-5.0); Albumin Globulin Ratio 1.2 (1.0-2.8); Alkaline Phosphatase 76 U/L (38-126); Aspartate Aminotransferase 17 IU/L (14-36); BUN Creatinine Ratio 13.9 (6-22); Bilirubin Total 0.7 mg/dL (0.2-1.3); Blood Urea Nitrogen 10 mg/dL (7-17); Calcium 9.3 mg/dL (8.4-10.2); Carbon Dioxide 28 mmol/L (22-32); Chloride 103 mmol/L (98-107); Estimated Glomerular Filt Rate > 60 mL/min (>60); Globulin 3.3 g/dL (1.7-4.1); Glucose 119 mg/dL (80-110); HEMOLYSIS < 15 (0-50); Potassium 3.8 mmol/L (3.4-5.1); Sodium 140 mmol/L (137-145); Total Protein 7.4 g/dL (6.3-8.2)
[2022-10-17] MEDS: KETOROLAC 30 MG/ML VIAL 15 MG IV (07:03)
[2022-10-17] MEDS: cefTRIAXone 2,000 MG in SODIUM CHLORIDE 0.9% 100 ML 200 MG IV (07:04)
== END 2022-10-17 07:46 | disposition home or self-care (01) ==
PROVIDERS: Emergency Provider Emergency Medicine; PCP Student in an Organized Health Care Education/Training Program
DX: N30.90 Cystitis, unspecified without hematuria (principal); N12 Tubulo-interstitial nephritis, not specified as acute or chronic
CPT/HCPCS: 36415; 74177; 80053; 81015; 83605; 85025; 87040; 87077; 87086; 87186; 96361; 96365; 96375; 99284; J0696; J1170; J1885; J2405; Q9967

== ENCOUNTER → 2022-12-15 16:43 | Outpatient (CLI) | payer OTHER, SELFPAY ==
--- NOTE | 2022-12-15 16:46 | DI.MG.S_ITS ---
BILATERAL DIGITAL SCREENING MAMMOGRAM 3D/2D WITH CAD: 12/15/2022 CLINICAL: Routine screening. Comparison is made to exams dated: 12/24/2020 mammogram, 10/16/2019 mammogram, and 12/28/2017 mammogram - [facility]. There are scattered areas of fibroglandular density in both breasts (category b / 25%-50% glandular tissue). Current study was also evaluated with a Computer Aided Detection (CAD) system. There are mole markers on both breasts. No significant masses, calcifications, or other findings are seen in either breast. There has been no significant interval change. IMPRESSION: NEGATIVE There is no mammographic evidence of malignancy. A 1 year screening mammogram is recommended. Based on the Tyrer Cuzick model (a risk assessment model) the patient's lifetime risk is 5.8% and her 10 year risk is 2.7%. According to the ACR, ACS, and NCCN guidelines, an annual breast MRI exam along with mammogram is recommended if the patient's lifetime risk is 20% or greater. This exam was interpreted at Station ID: [id number]. NOTE: For mammograms, a report in lay terms will be sent to the patient. Approximately 15% of breast malignancies will not be visualized mammographically. In the management of a palpable breast mass, a negative mammogram must not discourage biopsy of a clinically suspicious lesion. Electronically Signed By: Guzman deng/hernando:12/16/2022 13:31:25 letter sent: Normal Exam ACR BI-RADS Category 1: Negative 3341F
== END ==
PROVIDERS: PCP Student in an Organized Health Care Education/Training Program; Referring Provider Student in an Organized Health Care Education/Training Program; Visit Provider Student in an Organized Health Care Education/Training Program
DX: Z12.31 Encounter for screening mammogram for malignant neoplasm of breast (principal)
CPT/HCPCS: 77063; 77067

== ENCOUNTER → 2022-12-22 08:53 | Outpatient (CLI) | payer OTHER, SELFPAY ==
--- NOTE | 2022-12-22 | DI.RAD.S_ITS ---
PROCEDURE: XR SACRUM COCCYX MIN 2V INDICATIONS: PINCHED NERVE TECHNIQUE: 3 views of the sacrum and coccyx acquired. COMPARISON: None. FINDINGS: Bones: Partially seen bilateral mild hip arthrosis. Lumbosacral mild degenerative changes. No displaced fracture or dislocation. Soft tissues: Surgical clips seen projecting over the right pelvis. IMPRESSION: No acute radiographic abnormality. If there is high concern for further derangement, consider MRI evaluation. Dictated by: Jay Hernandes M.D. on 12/22/2022 at 11:20 Approved by: Jay Hernandes M.D. on 12/22/2022 at 11:20
== END ==
PROVIDERS: PCP Student in an Organized Health Care Education/Training Program; Referring Provider Student in an Organized Health Care Education/Training Program; Visit Provider Student in an Organized Health Care Education/Training Program
DX: G58.9 Mononeuropathy, unspecified (principal); M16.0 Bilateral primary osteoarthritis of hip; M47.817 Spondylosis without myelopathy or radiculopathy, lumbosacral region
CPT/HCPCS: 72220

== ENCOUNTER → 2023-03-31 14:30 | Outpatient (CLI) | payer OTHER, SELFPAY ==
[2023-03-31 16:12] LABS: Add Manual Diff / Slide Review NO; Basophils Absolute Auto 100 /uL (0-100); Basophils Percent Auto 0.8 % (0-2); Eosinophils Absolute Auto 200 /uL (0-450); Eosinophils Percent Auto 1.9 % (2-4); Hematocrit 39.1 % (36-46); Hemoglobin 13.1 g/dL (12.0-16.0); Lymphocytes Absolute Auto 3500 /uL (1100-4500); Lymphocytes Percent Auto 33.8 % (25-40); Mean Corpuscular HGB Conc 33.6 % (30-36); Mean Corpuscular Hemoglobin 29.5 PG (26-34); Mean Corpuscular Volume 87.9 fL (80-100); Monocytes Absolute Auto 700 /uL (0-900); Monocytes Percent Auto 6.9 % (3-14); Neutrophils Absolute Auto 5800 /uL (1500-7000); Neutrophils Percent Auto 56.6 % (50-75); Platelet Count 317 X10^3/uL (150-400); Red Blood Cell Count 4.45 X10^6/uL (4.0-5.2); Red Cell Distribution Width 14.6 % (11.6-14.8); White Blood Cell Count 10.3 X10^3/uL (4.5-11.0)
[2023-03-31 16:16] LABS: Erythrocyte Sedimentation Rate 33 MM/HR (0-20)
[2023-03-31 16:34] LABS: C-Reactive Protein Quant 1.3 mg/dL (<1.0)
[2023-04-02 19:36] LABS: ANA Screen, IFA Negative (.)
== END ==
PROVIDERS: PCP Student in an Organized Health Care Education/Training Program; Referring Provider Pediatrics; Visit Provider Pediatrics
DX: M19.90 Unspecified osteoarthritis, unspecified site (principal); M65.80 Other synovitis and tenosynovitis, unspecified site; R20.8 Other disturbances of skin sensation; T14.8XXA Other injury of unspecified body region, initial encounter
CPT/HCPCS: 36415; 85025; 85651; 86038; 86140

== ENCOUNTER → 2023-05-09 18:49 | Outpatient (ROUT) | payer OTHER, SELFPAY | PROVIDERS: PCP Student in an Organized Health Care Education/Training Program; Visit Provider Dermatology | DX: D48.5 Neoplasm of uncertain behavior of skin (principal) | CPT/HCPCS: 87070; 87075; 87077; 87147; 87186; 87205 ==

== ENCOUNTER 2023-05-20 13:32 | Day surgery (SDC) | payer OTHER, SELFPAY ==
--- NOTE | 2023-05-20 | PATH_ITS ---
[facility] Accession Number: [id number] No. of containers..04 Tissue . 01 Material submitted: . PART A: colon - CECAL POLYP PART B: colon - ASCENDING COLON POLYP PART C: colon - DESCENDING COLON POLYP PART D: rectum - RECTAL POLYP . 01 Diagnosis: A. Cecal Polyp, Biopsy: Tubular adenoma. . B. Ascending Colon Polyp, Biopsy: Tubular adenoma. . C. Descending Colon Polyp, Biopsy: Tubular adenoma. . D. Rectal Polyp, Biopsy: Hyperplastic polyp. [facility] 05/27/2023 1336 Local . 01 Electronically signed: . Brenda Barahona MD, Pathologist NPI- [id number] . 01 Gross description: . Part A: CECAL POLYP: Received in formalin is 1 fragment(s) of pedersen, soft tissue measuring 0.3 x 0.3 x 0.2 cm submitted entirely in 1 cassette(s) Part B: ASCENDING COLON POLYP: Received in formalin is multiple fragment(s) of pedersen, soft tissue measuring 0.5 x 0.3 x 0.1 cm in aggregate submitted entirely in 1 cassette(s) Part C: DESCENDING COLON POLYP: Received in formalin is 2 fragment(s) of pedersen, soft tissue measuring 0.8 x 0.3 x 0.3 cm to 0.4 x 0.3 x 0.1 cm submitted entirely in 1 cassette(s) Part D: RECTAL POLYP: Received in formalin is 2 fragment(s) of pedersen, soft tissue measuring 0.3 x 0.3 x 0.2 cm to 0.3 x 0.2 x 0.1 cm submitted entirely in 1 cassette(s) /AAY 05/24/2023 0026 Local . 01 Pathologist provided ICD-10: D12.0, D12.2, D12.4, D12.8 . 01 CPT . 956358, 159265, [id number], [id number] Specimen Comment: A courtesy copy of this report has been sent to [facility] Pathology Performed at: 01 [facility] [address] [place] [address], [place], [place] [id number] MD Rod Dutton MD Phone: [phone]
[2023-05-20 14:03] VITALS: BMI 36.5
[2023-05-20 14:12] VITALS: BP 149/80; PULSE 77; RESP 18; TEMP 36.6; O2SAT 98
[2023-05-20] MEDS: LACTATED RINGERS 1,000 ML 42 ML IV (14:16)
--- NOTE | 2023-05-20 14:31 | PM.HP.1 ---
History of Present Illness History of Present Illness Date Patient Seen: 05/20/23 Time Patient Seen: 14:31 Chief complaint: Colonoscopy Narrative: 62 yo F presents today for a screening colonoscopy. In around 2007 she presented to [facility] with severe diverticulitis and underwent a emergent colectomy she had a colostomy that was taken down about 3 months later. Her surgeon was Dr. Strange at the time. It has been 10+ years since her last colonoscopy though she has no recollection of history of polyps. 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 Primary insomnia (07/06/16) Rheumatoid arthritis (2008) RLS (restless legs syndrome) (1960) Skin tenderness Spinal stenosis, lumbar region with neurogenic claudication Tendon calcification Surgical History (Updated 11/29/22 @ 09:35 by Jerel Pabon MD) Anesthesia History of arthroscopic knee surgery (~2008) History of back surgery (~01/2021) History of cholecystectomy (03/24/12) History of colonoscopy (05/01/13) History of hemicolectomy (07/06/16) History of hysterectomy (2003) History of knee replacement (2012) History of partial colectomy (2007) History of tonsillectomy (1974) History of tubal ligation (1994) Status post right breast lumpectomy (1977) Status post right knee replacement Family History Son Age: 33 Mental health problem Daughter Age: 32 Obesity, unspecified obesity severity, unspecified obesity type Father Type 2 diabetes mellitus without complication, unspecified terminal block assembler insulin use status Mother Cancer Erysipelas Sister Age: 72 Type 2 diabetes mellitus without complication, unspecified terminal block assembler insulin use status Brother Multiple myeloma Social History household members: children and none Smoking Status: Former smoker alcohol intake: current substance use type: does not use Meds Home Medications and Allergies Home Medications Medication Instructions Recorded Confirmed Type diphenhydramine HCl 25 mg capsule 25 mg PO BEDTIME 01/08/21 05/20/23 History (Benadryl) Allergies Allergy/AdvReac Type Severity Reaction Status Date / Time aspirin AdvReac Intermediate Stomach Verified 05/20/23 14:01 pain Penicillins AdvReac Mild Unknown Verified 05/20/23 14:01 TAPE AdvReac Mild WHITE Uncoded 05/20/23 14:18 TAPE: RASH Exam Vital Signs (past 8 hours): - 05/20/23 14:12 Temperature 98 F Pulse Rate 77 Respiratory Rate 18 Blood Pressure 149/80 H Pulse Oximetry 98 Oxygen Delivery Method Room Air Oxygen Delivery Method Room Air Const General: cooperative, healthy appearing and comfortable Nutritional Appearance: obese (BMI 36) Orientation: alert, awake and oriented x3 HENMT Mouth: oral mucosae normal Eyes General: appearance normal, both eyes and all related structures Resp Effort & Inspection: normal respiratory effort and able to speak in complete sentences GI Palpation: soft and No tender Assessment & Plan Assessment and plan (1) Colon cancer screening: Status: Acute Assessment & Plan narrative: Presents today for screening colonoscopy I discussed the risks benefits and alternatives including but not limited to perforation of the colon and an incomplete exam she fully understands these risks and would like to proceed.
[2023-05-20 16:37] VITALS: BP 120/67; PULSE 70; RESP 16; TEMP 36.6; O2SAT 98
[2023-05-20 16:41] VITALS: BP 132/67; PULSE 69; RESP 13; O2SAT 98
--- NOTE | 2023-05-20 16:41 | PM.OP.COLON ---
Operative Date/Time/Diagnoses Date of procedure: 05/20/23 Time of procedure: 16:41 Pre-op diagnosis: Colon cancer screening, no family history, last colonoscopy 10+ years ago Post-op diagnosis: same Procedure & Clinicians Study performed: Colonoscopy and biopsy Same procedure as scheduled: Yes Indications: Colon cancer screening. Surgeon: Temi Finley Procedure Notes Procedure in detail: Patient was taken to the endoscopy suite and placed in a left lateral decubitus position. A time-out was performed. With the help of anesthesiologist conscious sedation was induced and monitored throughout the case. A digital rectal exam was performed and there were no masses or strictures. The colonoscope was introduced into the anal canal and advanced through to the cecum. A photograph of the appendiceal orifice was obtained. The bowel prep was good [place] bowel prep score of 2. The scope was then withdrawn for a total of 15 minutes including biopsies. There was a small protrusion in the cecum that was photographed and removed with a biopsy forceps and sent for pathology. In the ascending colon I encountered a small polyp removed with biopsy forceps. In the descending colon there were 3 rather large polyps maybe 7 or 8 mm in size which were snared and removed all 3 in a similar proximity and sent together in the same specimen jar. The scope was then retroflexed and a photograph of the internal hemorrhoidal piles was obtained. There was a small rectal polyp that was biopsied at this time too. Interestingly throughout the transverse colon there were large deep diverticula which were photographed. Also further down in the distal colon was a large pouch which I thought may have been a post surgical change. Findings: divertiulosis and polyp(s) Specimen(s): other (1. Cecal polyp 2. Ascending polyp 3. Descending polyp x3 4. Small rectal polyp) Post-procedure Plan for aftercare: Likely going to be a 3-5 year follow-up because of the number of polyps. We will await the final pathology report for the official final recommendation for follow-up. I do recommend fiber supplementation for any patient was diverticula or polyps.
[2023-05-20 16:46] VITALS: BP 143/68; PULSE 67; RESP 22; O2SAT 98
== END 2023-05-20 17:00 | disposition home or self-care (01) ==
PROVIDERS: PCP Family Medicine; Referring Provider Surgery; Visit Provider Surgery
PROC: 0DJD8ZZ Inspection of Lower Intestinal Tract, Via Natural or Artificial Opening Endoscopic (ICD-10-PCS; CPT 45378; principal; 2023-05-20 14:15)
DX: Z12.11 Encounter for screening for malignant neoplasm of colon (principal); K57.30 Diverticulosis of large intestine without perforation or abscess without bleeding; D12.0 Benign neoplasm of cecum; D12.2 Benign neoplasm of ascending colon; D12.4 Benign neoplasm of descending colon; K62.1 Rectal polyp
CPT/HCPCS: 45385; 45380; J2704

== ENCOUNTER → 2023-10-17 14:37 | Outpatient (CLI) | payer OTHER, SELFPAY ==
[2023-10-17 15:11] LABS: Add Manual Diff / Slide Review NO; Basophils Absolute Auto 100 /uL (0-100); Basophils Percent Auto 0.6 % (0-2); Eosinophils Absolute Auto 200 /uL (0-450); Eosinophils Percent Auto 2.1 % (2-4); Hematocrit 39.5 % (36-46); Hemoglobin 13.2 g/dL (12.0-16.0); Lymphocytes Absolute Auto 3700 /uL (1100-4500); Lymphocytes Percent Auto 40.6 % (25-40); Mean Corpuscular HGB Conc 33.3 % (30-36); Mean Corpuscular Hemoglobin 29.3 PG (26-34); Monocytes Absolute Auto 600 /uL (0-900); Monocytes Percent Auto 7.1 % (3-14); Neutrophils Absolute Auto 4500 /uL (1500-7000); Neutrophils Percent Auto 49.6 % (50-75); Platelet Count 301 X10^3/uL (150-400); Red Blood Cell Count 4.49 X10^6/uL (4.0-5.2); Red Cell Distribution Width 14.9 % (11.6-14.8); White Blood Cell Count 9.1 X10^3/uL (4.5-11.0)
[2023-10-17 15:17] LABS: Hemoglobin A1C% w Est Avg Glu 5.8 % (4.0-6.0)
[2023-10-17 15:32] LABS: Alanine Aminotransferase 16 IU/L (<35); Albumin 4.1 g/dL (3.5-5.0); Albumin Globulin Ratio 1.2 (1.0-2.8); Alkaline Phosphatase 71 U/L (38-126); Aspartate Aminotransferase 20 IU/L (14-36); BUN Creatinine Ratio 17.9 (6-22); Bilirubin Total 0.6 mg/dL (0.2-1.3); Blood Urea Nitrogen 12 mg/dL (7-17); Carbon Dioxide 27 mmol/L (22-32); Chloride 105 mmol/L (98-107); Cholesterol 225 mg/dL (140-199); Estimated Glomerular Filt Rate > 60 mL/min (>60); Globulin 3.3 g/dL (1.7-4.1); Glucose 92 mg/dL (80-110); HDL Cholesterol 45 mg/dL (40-60); HEMOLYSIS < 15 (0-50); LDL Cholesterol Calculated 148 mg/dL (<100); Potassium 4.5 mmol/L (3.4-5.1); Sodium 139 mmol/L (137-145); Total Protein 7.4 g/dL (6.3-8.2); Triglycerides 161 mg/dL (35-150)
[2023-10-17 16:00] LABS: TSH w/ Reflex to FT4 2.06 uIU/mL (0.47-4.68)
[2023-10-17 18:47] LABS: HIV 1 & 2 Ab/Ag 4th Gen Combo NEGATIVE (NEGATIVE)
== END ==
PROVIDERS: PCP Family Medicine; Referring Provider Family Medicine; Visit Provider Family Medicine
DX: Z00.00 Encounter for general adult medical examination without abnormal findings (principal); Z11.4 Encounter for screening for human immunodeficiency virus [HIV]; E78.2 Mixed hyperlipidemia; R25.1 Tremor, unspecified; E66.9 Obesity, unspecified
CPT/HCPCS: 36415; 80053; 80061; 83036; 84443; 85025; 87389

== ENCOUNTER → 2023-12-19 16:57 | Outpatient (CLI) | payer OTHER, SELFPAY ==
--- NOTE | 2023-12-19 | DI.MG.S_ITS ---
BILATERAL DIGITAL SCREENING MAMMOGRAM 3D/2D WITH CAD: 12/19/2023 CLINICAL: Routine screening. Comparison is made to exams dated: 12/15/2022 mammogram, 12/24/2020 mammogram, and 10/16/2019 mammogram - [facility]. Both breasts are almost entirely fatty (category a/<25% glandular tissue). Current study was also evaluated with a Computer Aided Detection (CAD) system. No significant masses, calcifications, or other findings are seen in either breast. There has been no significant interval change. IMPRESSION: NEGATIVE There is no mammographic evidence of malignancy. A 1 year screening mammogram is recommended. Based on the Tyrer Cuzick model (a risk assessment model) the patient's lifetime risk is 3.7% and her 10 year risk is 1.7%. According to the ACR, ACS, and NCCN guidelines, an annual breast MRI exam along with mammogram is recommended if the patient's lifetime risk is 20% or greater. This exam was interpreted at Station ID: [id number]. NOTE: For mammograms, a report in lay terms will be sent to the patient. Approximately 15% of breast malignancies will not be visualized mammographically. In the management of a palpable breast mass, a negative mammogram must not discourage biopsy of a clinically suspicious lesion. Electronically Signed By: Esme manning/hernando:12/20/2023 18:13:59 letter sent: Normal Exam ACR BI-RADS Category 1: Negative 3341F
== END ==
LOC: MAMMO 16:58
PROVIDERS: PCP Family Medicine; Referring Provider Family Medicine; Visit Provider Family Medicine
DX: Z12.31 Encounter for screening mammogram for malignant neoplasm of breast (principal); R92.313 Mammographic fatty tissue density, bilateral breasts
CPT/HCPCS: 77063; 77067

== ENCOUNTER → 2024-05-30 15:16 | Outpatient (CLI) | payer OTHER, SELFPAY ==
--- NOTE | 2024-05-30 15:17 | DI.RAD.S_ITS ---
PROCEDURE: XR SHOULDER LT MIN 2V INDICATIONS: severe pain to left side x 4 days TECHNIQUE: Three views of the shoulder were acquired. COMPARISON: None. FINDINGS: Bones: There are no osseous abnormalities. Acromioclavicular and glenohumeral joints: Normal in width and alignment without arthritic change Soft tissues: No soft tissue swelling, calcification or mass. IMPRESSION: Normal shoulder Dictated by: Jerel Blevins M.D. on 05/31/2024 at 8:06 Approved by: Jerel Blevins M.D. on 05/31/2024 at 8:07
--- NOTE | 2024-05-30 15:17 | DI.RAD.S_ITS ---
PROCEDURE: XR CERVICAL SPINE 2V OR 3V INDICATIONS: severe pain to left side x 4 days TECHNIQUE: Four views (s) of the cervical spine were acquired. COMPARISON: None. FINDINGS: Cervical spine curvature and alignment: Normal. Bones: There are no osseous abnormalities. Disc spaces: Mild C4-5 and moderate C5-6 and C6-7 degenerative disc disease noted. Intervertebral foramen: Grossly normal in width. Soft tissues: No soft tissue swelling, calcification or mass. IMPRESSION: Degeneration Dictated by: Jerel Blevins M.D. on 05/31/2024 at 8:10 Approved by: Jerel Blevins M.D. on 05/31/2024 at 8:12
== END ==
PROVIDERS: PCP Family Medicine; Referring Provider Physician Assistant; Visit Provider Physician Assistant
DX: M50.321 Other cervical disc degeneration at C4-C5 level (principal); M25.519 Pain in unspecified shoulder
CPT/HCPCS: 72040; 73030

== ENCOUNTER → 2024-07-17 08:09 | Outpatient (CLI) | payer OTHER, SELFPAY | PROVIDERS: PCP Family Medicine; Referring Provider Physician Assistant Medical; Visit Provider Physician Assistant Medical | DX: R30.0 Dysuria (principal); N30.01 Acute cystitis with hematuria | CPT/HCPCS: 87077; 87086; 87186 ==

== ENCOUNTER → 2024-07-30 10:38 | Outpatient (CLI) | payer OTHER, SELFPAY | PROVIDERS: PCP Family Medicine; Visit Provider Physician Assistant | DX: R30.0 Dysuria (principal); N30.00 Acute cystitis without hematuria | CPT/HCPCS: 87077; 87086; 87186 ==

== ENCOUNTER → 2024-08-21 07:56 | Outpatient (CLI) | payer OTHER, SELFPAY | PROVIDERS: PCP Family Medicine; Referring Provider Physician Assistant Medical; Visit Provider Physician Assistant Medical | DX: R30.0 Dysuria (principal) | CPT/HCPCS: 87077; 87086; 87186 ==

== ENCOUNTER → 2024-10-18 16:27 | Outpatient (CLI) | payer OTHER, SELFPAY ==
[2024-10-18 18:59] LABS: Cholesterol 245 mg/dL (140-199); HDL Cholesterol 41 mg/dL (40-60); LDL Cholesterol Calculated 160 mg/dL (<100); Triglycerides 219 mg/dL (35-150)
[2024-10-18 19:01] LABS: Hemoglobin A1C% w Est Avg Glu 5.8 % (4.0-6.0)
== END ==
LOC: LAB 16:28
PROVIDERS: PCP Family Medicine; Referring Provider Family Medicine; Visit Provider Family Medicine
DX: E78.2 Mixed hyperlipidemia (principal); R73.01 Impaired fasting glucose; E66.9 Obesity, unspecified
CPT/HCPCS: 36415; 80061; 83036

== ENCOUNTER → 2025-03-11 13:19 | Outpatient (CLI) | payer OTHER, SELFPAY ==
--- NOTE | 2025-03-11 13:20 | DI.MG.S_ITS ---
MM screening mammo BI: 03/11/2025. BI-RADS: 1 CLINICAL: 64-year old female for bilateral screening mammogram. Tyrer-Cuzick lifetime risk of 2.6%. No personal or first-degree family history of breast cancer. The patient had a prior right breast biopsy. PRIOR EXAMS 12/19/2023, 12/15/2022, 12/24/2020, 10/16/2019, 12/28/2017. MAMMOGRAPHY TECHNIQUE: 2D and 3D (tomosynthesis) digital mammographic views obtained, with additional images as needed for full coverage. Current study was also evaluated with a Computer Aided Detection (CAD) system. DENSITY A. The breasts are almost entirely fatty. MAMMOGRAPHY FINDINGS Bilateral: No suspicious mass, asymmetry, microcalcification, or other abnormality seen. IMPRESSION: * No evidence of malignancy. RECOMMENDATIONS Bilateral * Annual screening mammography. OVERALL ASSESSMENT CATEGORY BI-RADS-1: Negative. The [employer] recommends annual screening mammography beginning at age 40 for women with average risk of breast cancer. ELECTRONICALLY SIGNED: Jean Lentz M.D. on 03/11/2025 at 05:06:26 PM PT Interpreting Station ID: [id number]
== END ==
LOC: MAMMO 13:20
PROVIDERS: PCP Family Medicine; Referring Provider Family Medicine; Visit Provider Family Medicine
DX: Z12.31 Encounter for screening mammogram for malignant neoplasm of breast (principal); R92.313 Mammographic fatty tissue density, bilateral breasts
CPT/HCPCS: 77063; 77067